=== PATIENT | female | born 1965 | race Caucasian/White ===

== ENCOUNTER 2018-11-13 14:15 | Emergency (ER) | payer OTHER ==
[~2018-11-13] VITALS: Ht 162.6 cm; Wt 68.0 kg
[~2018-11-13 14:15] MED LIST: AMOXICILLIN 50500 M1 PO; BIRTH CONTROL; GARAMYCIN5 M1 OP; NORCO 5-325 TA1 EACH PO; TOPROL XL25 MG PO; VYVANSE40 MG; ZOLOFT 50 MG TA50 M1; ZPAK PO
[2018-11-13] MEDS ORDERED: TRAZODONE HCL50 MG PO (14:30)
[2018-11-13] MEDS ORDERED: ULTRAM 50MG TAB50 MG PO (15:36)
[2018-11-13 16:04] VITALS: BP 142/56
== END 2018-11-13 16:07 | disposition home or self-care (01) ==
LOC: ER 14:15
DX: S53.491A Other sprain of right elbow, initial encounter (principal); F41.9 Anxiety disorder, unspecified; I10 Essential (primary) hypertension; W01.0XXA Fall on same level from slipping, tripping and stumbling without subsequent striking against object, initial encounter; Y93.89 Activity, other specified; Y92.89 Other specified places as the place of occurrence of the external cause; Y99.8 Other external cause status